=== PATIENT | female | born 1935 | race African-American/Black ===

== ENCOUNTER → 2016-12-03 | Outpatient (CLI) | payer OTHER | LOC: HYPER 11-06 07:02 | DX: L89.154 Pressure ulcer of sacral region, stage 4 (principal); E11.69 Type 2 diabetes mellitus with other specified complication; M05.9 Rheumatoid arthritis with rheumatoid factor, unspecified; I10 Essential (primary) hypertension; E78.5 Hyperlipidemia, unspecified; K21.9 Gastro-esophageal reflux disease without esophagitis; J44.9 Chronic obstructive pulmonary disease, unspecified ==